=== PATIENT | male | born 1980 | race Caucasian/White ===

== ENCOUNTER 2020-06-12 16:37 | Emergency (ER) | payer OTHER ==
[~2020-06-12] VITALS: Ht 170.2 cm; Wt 72.6 kg
[2020-06-12] MEDS ORDERED: BACTRIM DS TAB1 EACH PO (17:24)
[2020-06-12] MEDS ORDERED: CENTANY30 GM TOP (17:24)
[2020-06-12 18:08] VITALS: BP 138/98
== END 2020-06-12 18:09 | disposition home or self-care (01) ==
LOC: M.ERS 16:37
DX: J34.0 Abscess, furuncle and carbuncle of nose (principal); L84 Corns and callosities; F17.210 Nicotine dependence, cigarettes, uncomplicated